=== PATIENT | female | born 1985 | race Caucasian/White ===

== ENCOUNTER 2018-01-17 06:15 | Day surgery (SDC) | payer BC ==
[~2018-01-17 06:15] MED LIST: Acetaminophen TAB* 325 MG PO ONE; Buffered Lidocaine 0.9% SYRIN* 5 ML/SYR SYRINGE INTRADERM ONE
[2018-01-17] MEDS ORDERED: Acetaminophen TAB* 325 MG ONE (06:45)
[2018-01-17] MEDS ORDERED: Bupivacaine 0.5% W/EPI SDV* 30 ML VIAL ONE (06:49)
[2018-01-17] MEDS ORDERED: Lidocaine 2% JELLY* 6 ML JELLY TOPICAL ONE (06:50)
[2018-01-17] MEDS ORDERED: Lidocaine 1% INJ* 10 MG/ML 30 ML SDV ONE (06:50)
[2018-01-17] MEDS ORDERED: fentaNYL* 50 MCG/ML 2 ML VIAL (100 MCG VIAL) ONE (07:11)
[2018-01-17] MEDS ORDERED: Midazolam* 1 MG/ML 2 ML VIAL (2 MG) ONE ×2 (07:12→07:37)
[2018-01-17] MEDS ORDERED: Ketorolac INJ* 30 MG/ML 1 ML VIAL ONE (07:34)
[2018-01-17] MEDS ORDERED: Propofol* 10 MG/ML 20 ML BTL IV PUSH ONE (07:34)
[2018-01-17] MEDS ORDERED: Famotidine IV* 10 MG/ML 2 ML (20 mg) ONE (07:34)
[2018-01-17] MEDS ORDERED: Lidocaine 2% PF * 5 ML VIAL ONE (07:34)
[2018-01-17] MEDS ORDERED: Dexamethasone IV* 4 MG/ML 1 ML (4 MG) ONE (07:34)
[2018-01-17] MEDS ORDERED: diPHENhydraMINE IV* 50 MG/ML 1 ml VIAL (BENADRYL) ONE (07:41)
[2018-01-17] MEDS ORDERED: KETAMINE HCL* 50 MG/ML 10 ML VIAL ONE (07:45)
[2018-01-17] MEDS ORDERED: Bacitracin OINTMENT* 0.5% 0.5 oz TUBE ONE (08:10)
--- NOTE | 2018-01-17 08:20 | BRIEFOPN ---
Brief Operative Note - Surgery Procedures: Procedures OPERATIVE REPORT PRE-OP: Multiple anal skin tags POST-OP: Same PROCEDURE: Excision of multiple anal skin tags SURGEON: MD Mike ANESTHESIA:Local with MAC Dr. Silveira ASST:none IVF:min EBL:min SPECIMEN:Anal skin tags DRAIN: none WOUND CLASS:one COMPLICATIONS: none TO PACU
[2018-01-17 09:02] VITALS: BP 127/67
--- NOTE | 2018-01-18 05:06 | OP ---
DATE OF OPERATION: 01/17/18 - [facility] DATE OF : 85 SURGEON: Ronnie Mckeon MD PREPARATION CENTER COORDINATOR: None. ANESTHESIA: Local with monitored anesthesia care with Dr. Silveira. PRE-OP DIAGNOSIS: Multiple anal skin tags. POST-OP DIAGNOSIS: Multiple anal skin tags. OPERATIVE PROCEDURE: Excision of multiple anal skin tags. ESTIMATED BLOOD LOSS: Minimal. SPECIMENS: Anal skin tags. DRAIN: None. WOUND CLASSIFICATION: I. COMPLICATIONS: None. DESCRIPTION OF PROCEDURE: Written informed consent was obtained, and the patient did not receive preoperative IV antibiotics. She was taken to the operating room and intravenous sedation was administered then she was placed in the prone jackknife position. Perianal and buttock areas were prepped and draped in usual sterile fashion. Timeout verification was completed. She had 2 skin tags, one in about the 12 o'clock position, one larger one in the anterior 6 o'clock position. 1% Lidocaine with epinephrine was infiltrated into the area and the 2 skin tags were excised completely using a 15 blade knife. These were collected with superficial dissection and specimens were sent separately to rule out any abnormality and labeled as anterior and posterior anal skin tags. The skin incisions were closed with interrupted 5-0 Vicryl Rapide suture. The bacitracin and lidocaine gel were applied. Dry sterile dressing was placed. The patient tolerated the procedure well, was taken to the recovery room in stable condition. [id number]/[facility] #: [id number] [facility]
== END 2018-01-17 09:30 | disposition home or self-care (01) ==
LOC: OR 06:15
PROVIDERS: ATTEND Surgery
DX: K64.4 Residual hemorrhoidal skin tags (principal)
CPT/HCPCS: 81025; 88304; A9270-GY; J1100; J1200; J1885; J2250; J2704; J3010

== ENCOUNTER 2018-08-05 09:27 | Emergency (ER) | payer BC ==
[2018-08-05 09:36] VITALS: BP 118/77
--- NOTE | 2018-08-05 11:11 | UC ---
Throat Pain/Nasal [place] HPI - HPI Summary HPI Summary: 32-year-old female who is had a sore throat for approximately 2 or 3 days she has been around someone with strep. - History of Current Complaint Chief Complaint: UCGeneralIllness Stated Complaint: SORE THROAT Time Seen by Provider: 08/05/18 10:30 Hx Obtained From: Patient Hx Last Menstrual Period: iud ?: No Onset/Duration: Gradual Onset Severity: Mild Pain Intensity: 5 Cough: None Associated Signs & Symptoms: Positive: Negative - Allergies/Home Medications Allergies/Adverse Reactions: Allergies Allergy/AdvReac Type Severity Reaction Status Date / Time cefaclor [From [facility]] Allergy Severe Hives Verified 08/05/18 09:36 PMH/Surg Hx/FS Hx/Imm Hx Previously Healthy: Yes - Surgical History Surgical History: None - Family History Known Family History: Positive: Non-Contributory - Social History Alcohol Use: Occasionally Substance Use Type: None Smoking Status (MU): Never Smoked Tobacco Review of Systems All Other Systems Reviewed And Are Negative: Yes Constitutional: Positive: Fever, Chills ENT: Positive: Sore Throat Is Patient Immunocompromised?: No Physical Exam Triage Information Reviewed: Yes Appearance: Well-Appearing, No Pain Distress, Well-Nourished Vital Signs: Initial Vital Signs Temp 98 F 08/05/18 09:33 Pulse 71 08/05/18 09:33 Resp 16 08/05/18 09:33 BP 118/77 08/05/18 09:33 Pulse Ox 100 08/05/18 09:33 Vital Signs Reviewed: Yes Eyes: Positive: Conjunctiva Clear ENT: Positive: Pharyngeal erythema - Mild bilateral tonsillar E with exudate., TMs normal, Uvula midline. Negative: Trismus, Hoarse voice Neck: Positive: Supple, Nontender, Enlarged Nodes @ - Bilateral tonsillar lymph node enlargement. Respiratory: Positive: Lungs clear, Normal breath sounds, No respiratory distress, No accessory muscle use Cardiovascular: Positive: RRR, No Murmur, Pulses Normal, Brisk Capillary Refill Musculoskeletal Exam: Normal Neurological Exam: Normal Psychological Exam: Normal Skin Exam: Normal Throat Pain/Nasal Course/Dx - Course Course Of Treatment: Rapid strep test was negative. Because the patient has had fever, tonsillar erythema, some anxiously and tonsillar lymph node enlargement I am going to treat her for tonsillitis with amoxicillin 875 mg by mouth twice a day 10 days , change her toothbrush in 24 hours. She is going to be around a baby over the weekend. - Differential Dx/Diagnosis Provider Diagnosis: Tonsillitis Discharge - Sign-Out/Discharge Documenting (check all that apply): Patient Departure All imaging exams completed and their final reports reviewed: No Studies - Discharge Plan Condition: Fair Disposition: HOME Prescriptions: Amoxicillin/Clavulanate TAB* [Augmentin TAB 875*] 875 mg PO BID 10 Days #20 tab Patient Education Materials: Tonsillitis (ED) Referrals: Kaila Hernandez MD [Primary Care Provider] - Additional Instructions: Increase fluids, change her toothbrush in 24 hours, follow-up with your primary care provider in 4 or 5 days if no improvement. - Billing Disposition and Condition Condition: FAIR Disposition: Home
== END 2018-08-05 11:32 | disposition home or self-care (01) ==
LOC: UCEAST 09:27
DX: J03.90 Acute tonsillitis, unspecified (principal); Z88.1 Allergy status to other antibiotic agents
CPT/HCPCS: 87651; 99212; G0463

== ENCOUNTER 2018-12-20 09:13 | Emergency (ER) | payer BC ==
[2018-12-20 09:25] VITALS: BP 136/93
--- NOTE | 2018-12-20 09:25 | UC ---
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 Pt was able to "express" a small one using warm compresses , however, notes one more that is red, painful, swollen. Pleasant 33 yo female c/o L upper thigh abscess, starting 12/15 or 12/16. Started as two bumps, now one large bump. Tried to express fluid, soak in epsom salts, but to no avail. Tet utd per pt. No fever / chills. No other sores. No pets at home. No hx sores like this. C/o pain at wound site. - History of Current Complaint Chief Complaint: Charu Stated Complaint: SKIN ISSUE Hx Obtained From: Patient Hx Last Menstrual Period: no period Pain Intensity: 8 - Allergy/Home Medications Allergies/Adverse Reactions: Allergies Allergy/AdvReac Type Severity Reaction Status Date / Time cefaclor [From [facility]] Allergy Severe Hives Verified 12/20/18 09:19 PMH/Surg Hx/FS Hx/Imm Hx Previously Healthy: Yes - Surgical History Surgical History: None - Family History Known Family History: Positive: Non-Contributory - Social History Alcohol Use: Occasionally Substance Use Type: None Smoking Status (MU): Never Smoked Tobacco Review of Systems All Other Systems Reviewed And Are Negative: Yes Constitutional: Positive: Negative Skin: Positive: Other - see hpi Eyes: Positive: Negative ENT: Positive: Negative Respiratory: Positive: Negative Cardiovascular: Positive: Negative Gastrointestinal: Positive: Negative Genitourinary: Positive: Negative Motor: Positive: Other - see hpi Neurovascular: Positive: Negative Musculoskeletal: Positive: Negative Neurological: Positive: Negative Psychological: Positive: Negative Is Patient Immunocompromised?: No Physical Exam Triage Information Reviewed: Yes Appearance: Well-Appearing, Well-Nourished Vital Signs: Initial Vital Signs Temp 98.4 F 12/20/18 09:20 Pulse 97 12/20/18 09:20 Resp 18 12/20/18 09:20 BP 136/93 12/20/18 09:20 Pulse Ox 100 12/20/18 09:20 Vital Signs Reviewed: Yes Eye Exam: Normal - grossly nad ENT Exam: Normal - grossly nad Neck exam: Normal Respiratory Exam: Normal Cardiovascular Exam: Normal Abdominal Exam: Normal Abdomen Description: Positive: Nontender Musculoskeletal Exam: Normal - see "skin" o/w nad Neurological Exam: Normal - grossly nonfocal Psychological Exam: Normal - nad Skin Exam: Other - nondiaphoretic. no visible or reported rash. + red fluctuant abscess with approx 7.2cm x 5.8cm redness, blanching at edges, nonblanching central area. Dried central area, appear purulent. + tender. Course/Dx - Course Course Of Treatment: Reviwed ISTOP (researched by BUSINESS REPORTER here today). ref # [id number] Reviewed usual narc precaution / instruction. No issues reported. Procedure: Time out performed. Informed consent obtained. Usual sterile technique. Local anesthesia via 5 cc 2% lidocaine no epinephrine. Incision via #11blade 1.2cm. Yellow purulent material removed. Irrigated with 20cc NS, effluent approximating that of affluent. Wound cx swab sent. Gently packed with surgical packing. Dressing via gauze and abd pad, paper tape. Reviewed instructions. Tolerated well, without complication. Questions as posed answered to the best of my ability. Mom drove pt home. Rx bactrim, ibuprofen, norco. f/u pcp tomorrow, has appt. - Diagnoses Provider Diagnosis: Abscess, Cellulitis Discharge ED - Sign-Out/Discharge Documenting (check all that apply): Patient Departure All imaging exams completed and their final reports reviewed: No Studies - Discharge Plan Condition: Stable Disposition: HOME Prescriptions: HYDROcodone/ACETAMIN 5-325 MG* [[place] 5-325 TAB*] 1 tab PO Q6H PRN #12 tab MDD 4 PRN Reason: Pain - Moderate Ibuprofen TAB* [Motrin TAB* 600 MG] 600 mg PO Q8H PRN #30 tab PRN Reason: Pain Sulfamethox/Trimethoprim DS* [Bactrim DS 800/160 TAB*] 1 tab PO BID 7 Days #14 tab Patient Education Materials: Cellulitis (ED), Abscess (ED) Forms: *Work Release Referrals: Kaila Hernandez MD [Primary Care Provider] - Additional Instructions: Follow up with Dr. Hernandez tomorrow. Please seek medical attention for worse or new problems in the meantime. Hydrate. Avoid astringents. Avoid shower or bath to wound site until your doctor says it's ok. Probably 5- 7 days. - Billing Disposition and Condition Condition: STABLE Disposition: Home
[2018-12-20] MEDS ORDERED: Lidocaine 2% PF * 5 ML VIAL INJ ONE (09:53)
[2018-12-20] MEDS ORDERED: HYDROcodone/ACETAMIN 5-325 MG* 1 TAB PO ONE (09:54)
[2018-12-20] MEDS ORDERED: Sulfamethox/Trimethoprim DS 800/160* TAB PO ONE (09:55)
--- NOTE | 2018-12-20 19:33 | UC ---
- Progress Note Progress Note: PLEASE CALL PATIENT. INFORM THAT CULTURE POSITIVE FOR MRSA. CONTINUE BACTRIM PRESCRIBED. SEEK FOLLOW-UP SYMPTOMS DO NOT COMPLETELY RESOLVE WITH THIS TREATMENT. Course/Dx - Diagnoses Provider Diagnoses: Abscess, Cellulitis Discharge ED - Sign-Out/Discharge Documenting (check all that apply): Post-Discharge Follow Up All imaging exams completed and their final reports reviewed: No Studies - Discharge Plan Condition: Stable Disposition: HOME Prescriptions: HYDROcodone/ACETAMIN 5-325 MG* [[place] 5-325 TAB*] 1 tab PO Q6H PRN #12 tab MDD 4 PRN Reason: Pain - Moderate Ibuprofen TAB* [Motrin TAB* 600 MG] 600 mg PO Q8H PRN #30 tab PRN Reason: Pain Sulfamethox/Trimethoprim DS* [Bactrim DS 800/160 TAB*] 1 tab PO BID 7 Days #14 tab Patient Education Materials: Cellulitis (ED), Abscess (ED) Forms: *Work Release Referrals: Kaila Hernandez MD [Primary Care Provider] - Additional Instructions: Follow up with Dr. Hernandez tomorrow. Please seek medical attention for worse or new problems in the meantime. Hydrate. Avoid astringents. Avoid shower or bath to wound site until your doctor says it's ok. Probably 5- 7 days. - Billing Disposition and Condition Condition: STABLE Disposition: Home
== END 2018-12-20 11:08 | disposition home or self-care (01) ==
LOC: UCEAST 09:13
DX: L02.212 Cutaneous abscess of back [any part, except buttock and flank] (principal); L03.312 Cellulitis of back [any part except buttock and flank]; B95.62 Methicillin resistant Staphylococcus aureus infection as the cause of diseases classified elsewhere; Z88.1 Allergy status to other antibiotic agents
CPT/HCPCS: 10060; 87070; 87077; 87186; 87205; 87640; 87641; 99212; A9270-GY; G0463

== ENCOUNTER 2019-01-28 15:53 | Emergency (ER) | payer BC ==
[2019-01-28 16:02] VITALS: BP 136/72
--- NOTE | 2019-01-28 16:13 | UC ---
Skin Complaint HPI - HPI Summary HPI Summary: 33yo, here for evaluation of tender nodule on thigh. Had I+D of an abscess in December which was positive for MRSA. Last night, became aware of a sore on the left buttock which has a similar onset and discomfort compared to last month. Area of I+D healed well with packing for several days until healed. NO fever or chills, recent URI but otherwise well. - History of Current Complaint Chief Complaint: UCSkin Time Seen by Provider: 01/28/19 16:09 Stated Complaint: SKIN COMPLAINT Hx Obtained From: Patient Hx Last Menstrual Period: IUD Onset/Duration: Sudden Onset Skin Exposure Onset/Duration: Hours Ago Timing: Constant Onset Severity: Moderate Current Severity: Moderate Pain Intensity: 6 Location: Discrete - left buttock Aggravating Factor(s): Touch - /seated posture Alleviating Factor(s): Nothing Associated Signs & Symptoms: Positive: Negative - Allergy/Home Medications Allergies/Adverse Reactions: Allergies Allergy/AdvReac Type Severity Reaction Status Date / Time cefaclor [From [facility]] Allergy Severe Hives Verified 12/20/18 09:19 PMH/Surg Hx/FS Hx/Imm Hx Previously Healthy: Yes - Surgical History Surgical History: None - Family History Known Family History: Positive: Non-Contributory - Social History Occupation: Employed Full-time Lives: Alone Alcohol Use: Weekly Substance Use Type: None Smoking Status (MU): Never Smoked Tobacco Review of Systems All Other Systems Reviewed And Are Negative: Yes Constitutional: Positive: Negative Skin: Positive: Other - sore area left buttock Eyes: Positive: Negative ENT: Positive: Nasal Discharge Respiratory: Positive: Negative Cardiovascular: Positive: Negative Genitourinary: Positive: Negative Motor: Positive: Negative Neurovascular: Positive: Negative Musculoskeletal: Positive: Negative Neurological: Positive: Negative Psychological: Positive: Negative Is Patient Immunocompromised?: No Physical Exam Triage Information Reviewed: Yes Appearance: Well-Appearing, No Pain Distress Vital Signs: Initial Vital Signs Temp 98.3 F 01/28/19 15:56 Pulse 90 01/28/19 15:56 Resp 16 01/28/19 15:56 BP 136/72 01/28/19 15:56 Pulse Ox 98 01/28/19 15:56 Eyes: Positive: Conjunctiva Clear ENT: Positive: Pharynx normal Neck: Positive: Supple, Nontender, No Lymphadenopathy Respiratory: Positive: Lungs clear, Normal breath sounds Cardiovascular: Positive: RRR, No Murmur Musculoskeletal Exam: Normal Neurological Exam: Normal Psychological Exam: Normal Skin Exam: Other - 6 x 5 cm well defined erytyhematous patch on left buttock. Well healed area of I+D. Has about 12 scattered small papules, pustules on posterior thighs, buttock area. Mildly tender, soft, without induration and no evidence of abscess Course/Dx - Course Course Of Treatment: Likely MRSA given hx. Will rx bactrim, compress, rx mupirocin for nares and papules on the buttocks. - Differential Diagnoses - Skin Complaint Differential Diagnoses: Cellulitis, MRSA - Diagnoses Provider Diagnosis: Cellulitis and abscess of buttock Discharge ED - Sign-Out/Discharge Documenting (check all that apply): Patient Departure All imaging exams completed and their final reports reviewed: No Studies - Discharge Plan Condition: Good Disposition: HOME Prescriptions: Mupirocin 2% OINT* [Bactroban 2 % Oint*] 1 applic TOPICAL BID #1 tube Sulfamethox/Trimethoprim DS* [Bactrim DS 800/160 TAB*] 1 tab PO BID #14 tab Patient Education Materials: Cellulitis (ED) Referrals: Kaila Hernandez MD [Primary Care Provider] - Additional Instructions: It is highly likely that this new site is also a MRSA infection, and should respond to bactrim. At this time, there is no abscess formation requiring drainage. Warm compress the area for 5 to 10 minutes 2 or 3 times per day, and return if there is formation of an abscess. Take the full course of oral antibiotics. For the next 10 days, swab a small amount of mupirocin ointment into both nasal passages before bed, and also apply it to the small pustules on the back of your legs and buttocks. This might decrease the risk of recurrence. - Billing Disposition and Condition Condition: GOOD Disposition: Home
== END 2019-01-28 16:41 | disposition home or self-care (01) ==
LOC: UCEAST 15:53
DX: L03.317 Cellulitis of buttock (principal); L02.31 Cutaneous abscess of buttock; Z88.1 Allergy status to other antibiotic agents
CPT/HCPCS: 99202; G0463

== ENCOUNTER 2019-02-01 13:32 | Emergency (ER) | payer BC ==
[2019-02-01 14:05] VITALS: BP 110/65
--- NOTE | 2019-02-01 15:29 | UC ---
Skin Complaint HPI - HPI Summary HPI Summary: PT WAS SEEN HERE 4 DAYS AGO FOR EARLY ABSCESS TO LEFT BUTTOCK. TX WITH BACTRIM AND BACTROBAN. IS RETURNING DUE TO CONCERNS THAT THE COLOR IS NOW A DEEPER RED AND IT IS STILL PAINFUL AND RAISED. NO DRAINAGE. NO FEVER. - History of Current Complaint Chief Complaint: UCSkin Time Seen by Provider: 02/01/19 14:34 Stated Complaint: SKIN ISSUE Hx Obtained From: Patient Hx Last Menstrual Period: no period Onset/Duration: Gradual Onset, Lasting Days, Still Present Timing: Constant Onset Severity: Moderate Current Severity: Moderate Pain Intensity: 8 Pain Scale Used: 0-10 Numeric Location: Discrete - LEFT BUTTOCK Character: Pain, Redness, Raised Aggravating Factor(s): Touch Associated Signs & Symptoms: Positive: Tenderness. Negative: Fever, Drainage, Red Streaks - Allergy/Home Medications Allergies/Adverse Reactions: Allergies Allergy/AdvReac Type Severity Reaction Status Date / Time c[facility]lor [[facility] Allergy Severe Hives Verified 02/01/19 13:59 PMH/Surg Hx/FS Hx/Imm Hx Previously Healthy: Yes - Surgical History Surgical History: None - Family History Known Family History: Positive: Non-Contributory - Social History Alcohol Use: Weekly Substance Use Type: None Smoking Status (MU): Never Smoked Tobacco Review of Systems All Other Systems Reviewed And Are Negative: Yes Constitutional: Positive: Negative Skin: Positive: Other - abscess left buttock Respiratory: Positive: Negative Cardiovascular: Positive: Negative Gastrointestinal: Positive: Negative Physical Exam Triage Information Reviewed: Yes Appearance: Well-Appearing, No Pain Distress, Well-Nourished Vital Signs: Initial Vital Signs Temp 98.9 F 02/01/19 14:00 Pulse 69 02/01/19 14:00 Resp 16 02/01/19 14:00 BP 110/65 02/01/19 14:00 Pulse Ox 99 02/01/19 14:00 Vital Signs Reviewed: Yes Eyes: Positive: Conjunctiva Clear ENT: Positive: Hearing grossly normal Neck: Positive: Supple Respiratory: Positive: No respiratory distress, No accessory muscle use Cardiovascular: Positive: Pulses Normal Abdomen Description: Positive: Soft Musculoskeletal: Positive: No Edema Neurological: Positive: Alert Psychological: Positive: Age Appropriate Behavior Skin: Positive: Other - 5CM x 3.5CM AREA OF ERYTHEMA WITH 1.5CM AREA OF CENTRALLY LOCATED INDURATION LEFT BUTTOCK Course/Dx - Course Course Of Treatment: COMPARED TO THE EXAM DOCUMENTED IN THE PROGRESS NOTE FROM THE URGENT CARE VISIT 4 DAYS AGO THE ABSCESS IS SMALLER IN SIZE AND THERE ARE NOW NO SURROUNDING SCATTERED PUSTULES/PAPULES. ABSCESS APPEARS TO BE RESOLVING. ADVISED TO CONTINUE THE BACTROBAN AND ANTIBIOTICS. WILL GIVE 3 MORE DAYS OF BACTRIM TO COMPLETE A 10 DAY COURSE. HAVE INSTRUCTED PATIENT ON USING HIBICLENS IN THE SHOWER TO HELP DECOLONIZE HER SKIN. THIS WILL HOPEFULLY HELP REDUCE HER RISK OF RECURRENCE. - Diagnoses Provider Diagnosis: Abscess of left buttock Discharge ED - Sign-Out/Discharge Documenting (check all that apply): Patient Departure All imaging exams completed and their final reports reviewed: No Studies - Discharge Plan Condition: Stable Disposition: HOME Prescriptions: Sulfamethox/Trimethoprim DS* [Bactrim DS 800/160 TAB*] 1 tab PO BID #6 tab Patient Education Materials: Abscess (ED) Referrals: Kaila Hernandez MD [Primary Care Provider] - If Needed Additional Instructions: YOUR SKIN INFECTION SEEMS TO BE RESOLVING. WILL EXTEND COURSE OF BACTRIM FOR 3 MORE DAYS TO TOTAL 10 DAYS. CONTINUE TO USE BACTROBAN. WASH WITH HIBICLENS BELOW. USE IT EVERY OTHER DAY FOR 1-2 WEEKS. THIS MAY HELP ELIMINATE YOUR SKIN COLONIZATION AND REDUCE YOUR RISK OF RECURRENT ABSCESSES. How to Use Hibiclens 1.Use your normal shampoo to wash your hair. Rinse your head well. 2.Use your normal soap to wash your face and genital area. Rinse your body well with warm water. 3.Open the Hibiclens bottle. Pour some solution into your hand or a clean washcloth. Dont dilute (mix) the Hibiclens with water before doing this. 4.Move away from the shower stream to avoid rinsing off the Hibiclens too soon. 5.Rub the Hibiclens gently over your body from your neck to your feet. Dont put the Hibiclens on: Your head or face (including your eyes, ears, and mouth), your genital area, wounds or scrapes that are deeper than the top layer of skin. 6.Move back into the shower stream to rinse off the Hibiclens with warm water. Rinse your body well. 7.Do not use regular soap after applying and rinsing HIBICLENS. 8.Dry yourself off with a clean towel after your shower. 9.Dont put on lotion, cream, deodorant, makeup, powder, perfume, or cologne after showering with Hibiclens. If you must use something Only use products that say chlorhexidine compatible on the label. If youre not sure, you can contact the company to ask. 10. Put on a freshly laundered gown or clothes after bathing. What to do if you get Hibiclens in your eye - Dont rub your eye. - Rinse your eye with lots of cold water right away. Keep your eye wide open while youre rinsing, and make sure to rinse under your eyelids. If youre wearing a contact lens, take it out, if you can. Keep rinsing for at 15 to 20 minutes. - If your eye is still irritated after 1 hour, go to an urgent care center or emergency room. If you swallow any Hibiclens rinse your mouth with cold water. DO not make yourself vomit. Get medical help or contact Poison Control ([phone]) right away. - Billing Disposition and Condition Condition: STABLE Disposition: Home
== END 2019-02-01 15:22 | disposition home or self-care (01) ==
LOC: UCEAST 13:32
DX: L02.31 Cutaneous abscess of buttock (principal); Z88.1 Allergy status to other antibiotic agents
CPT/HCPCS: 99212; G0463

== ENCOUNTER 2019-04-28 08:55 | Emergency (ER) | payer BC ==
[2019-04-28 09:19] VITALS: BP 140/69
--- NOTE | 2019-04-28 09:32 | UC ---
Skin Complaint HPI - HPI Summary HPI Summary: Patient is a 33 female presents to urgent care for evaluation of a wound on the left inner thigh. 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 Patient states she first noticed it yesterday. Patient states she put Bactroban on it but it got worse today. No drainage. MRI around No fevers or chills. Patient has not otherwise immune compromise. Tetanus is up-to-date. Patient's medications as entered in the EMR by triage was reviewed this visit. - History of Current Complaint Chief Complaint: UCSkin Time Seen by Provider: 04/28/19 09:29 Stated Complaint: RASH Hx Obtained From: Patient, Medical Records - previous cultures Hx Last Menstrual Period: IUD Onset/Duration: Gradual Onset Skin Exposure Onset/Duration: Minutes Ago Timing: Constant Onset Severity: Mild Current Severity: Mild Pain Intensity: 0 - Allergy/Home Medications Allergies/Adverse Reactions: Allergies Allergy/AdvReac Type Severity Reaction Status Date / Time cefaclor [From Ceclor] Allergy Severe Hives Verified 04/28/19 09:48 sulfamethoxazole Allergy Hives Verified 04/28/19 09:48 [From Bactrim] trimethoprim [From Bactrim] Allergy Hives Verified 04/28/19 09:48 PMH/Surg Hx/FS Hx/Imm Hx Previously Healthy: Yes - Surgical History Surgical History: None - Family History Known Family History: Positive: Non-Contributory - Social History Occupation: Employed Full-time Lives: With Family Alcohol Use: Weekly Substance Use Type: None Smoking Status (MU): Never Smoked Tobacco Review of Systems All Other Systems Reviewed And Are Negative: Yes Constitutional: Positive: Negative Skin: Positive: Other - left medial thigh Is Patient Immunocompromised?: No Physical Exam - Summary Physical Exam Summary: Vital Signs Reviewed: Yes A+Ox3, no distress Eyes: Conjunctiva Clear ENT: Hearing grossly normal neck: supple Respiratory: Positive: No respiratory distress, No accessory muscle use Cardiovascular: skin color reflect adequate perfusion Musculoskeletal Exam: GAO x 4 without difficulty Neurological: Positive: Alert, ambulatory without difficulty Psychological: Positive: Normal Response To examiner Skin: Positive: left mid medial thigh - pt with quarter sized area of erythema, small central raised area - no fluctuance, no induration, mild TTP, well demarcated Triage Information Reviewed: Yes Vital Signs: Initial Vital Signs Temp 98.4 F 04/28/19 09:14 Pulse 92 04/28/19 09:14 Resp 18 04/28/19 09:14 BP 140/69 04/28/19 09:14 Pulse Ox 98 04/28/19 09:14 Course/Dx - Course Course Of Treatment: Patient presented to urgent care 24 hours of erythema tender lesion left medial thigh. Patient has had 2 similar lesions in both were diagnosed with MRSA. Last 1 patient was put on Bactrim causes a rash she was changed into with good effect. Patient without any fevers or chills. Patient is not otherwise I compromise. On exam patient does have a quarter size area of erythema with a central lesion on her left medial thigh. No drainage no fluctuance mouth 100 patient. We'll start patient on antibiotics clindamycin. Recommend Bactroban topical. Follow up PCP. Return precautions. I did review patient's last 2 cultures of both were MRSA positive. Patient states understanding and agreement with plan. I did do some education with patient regarding MRSA. - Diagnoses Provider Diagnosis: Cellulitis Discharge ED - Sign-Out/Discharge Documenting (check all that apply): Patient Departure All imaging exams completed and their final reports reviewed: No Studies - Discharge Plan Condition: Stable Disposition: HOME Prescriptions: clindamycin HCL [Clindamycin HCl] 300 mg PO TID #21 capsule Mupirocin 2% CREAM* [Bactroban 2% CREAM*] 1 applic TOPICAL TID #1 tube Patient Education Materials: Cellulitis (ED) Referrals: Kaila Hernandez MD [Primary Care Provider] - Additional Instructions: - Take antibiotics 3 times a day as prescribed until gone - Okay to apply warm soaks to your wound for 10 min - 2-3 times a day - Cover your wound with bactroban ointment or antibiotic ointment such as neosporin, polysporin - Monitor for increased reddness, pain, red streaking, fever - Keep wound covered to help decrease rubbing on your clothing - Contact your doctor or return with questions or cocnerns - Billing Disposition and Condition Condition: STABLE Disposition: Home
== END 2019-04-28 10:03 | disposition home or self-care (01) ==
LOC: UCEAST 08:55
DX: L03.116 Cellulitis of left lower limb (principal); Z88.1 Allergy status to other antibiotic agents; Z88.2 Allergy status to sulfonamides
CPT/HCPCS: 99212; G0463